=== PATIENT | male | born 1990 | race Caucasian/White ===

== ENCOUNTER 2021-08-02 15:50 | Emergency (ER) | payer OTHER, SELFPAY ==
[2021-08-02 15:56] VITALS: BP 155/105; PULSE 117; RESP 18; TEMP 36.7; O2SAT 97; BMI 33.1
--- NOTE | 2021-08-02 15:57 | ED.C_ITS ---
HPI - Psych General: Chief Complaint: Psychiatric Symptoms Stated Complaint: psych eval Time Seen by Provider: 08/02/21 15:57 History of Present Illness: Mr. Layne is a 31-year-old gentleman with significant past medical history presents to the emergency department due to suicidal ideation and depression. He reports multiple year history of depression with challenges finding medication regimens that helped. At baseline he describes just getting by and maintaining however lately he has had increased stressors at work and in his social life. He reports 1 week ago having suicidal thoughts that were near continuous and pervasive though perhaps better over the past day or so He did not kill himself because he was worried about his daughter. He reports 4 prior episodes this bad in the past. Overall course of symptoms has been worsening. Intensity is moderate to severe. Associated symptoms including weight loss, difficulty concentrating, and difficulty with sleep despite Ambien. No other specific changes in health, exacerbating, or alleviating factors identified. Duration: getting worse History of same: Yes Context: significant life stressor Associated psychiatric symptoms: depression and suicidal ideation Review of Systems General: Reports: 10 or more systems reviewed and unremarkable except in HPI and below PFSH ED PFSH: Medical History Depression Surgical History No significant past surgical history Physical Exam Const: COMMON NORMALS: alert GENERAL APPEARANCE: cooperative and well developed HENMT: COMMON NORMALS: normocephalic and atraumatic HEAD & SCALP: normocephalic and atraumatic Eye: COMMON NORMALS: conjunctivae normal CONJUNCTIVA: Yes conjunctivae normal SCLERA: sclerae normal Neck/C-Spine: COMMON NORMALS: supple GENERAL: Yes trachea midline Resp: COMMON NORMALS: normal respiratory effort EFFORT & INSPECTION: Yes able to speak in complete sentences Cardio: COMMON NORMALS: regular rate and regular rhythm RATE: regular rate RHYTHM: regular rhythm GI: COMMON NORMALS: Soft to palpation PALPATION: Yes Soft to palpation and No Tenderness to palpation present (GI) PERCUSSION: normal to percussion Extremity: GENERAL: Yes normal exam except as noted and No edema Neuro: COMMON NORMALS: moves all extremities SENSORIUM/ORIENTATION: Yes alert and No Orientation impaired Psych: COMMON NORMALS: mental status grossly normal and Normal thought process present THOUGHT PROCESS: Normal thought process present Course ED course: - Patient was seen and evaluated by me at bedside -Vital signs obtained - Initial evaluation notable for exam as above - Labs personally interpreted by me - Labs notable for no significant abnormality requiring invention - Upon serial reexamination after treatment the patient was similar. Initially the patient was agreeable to getting to the hospital however he said with the change his mind. Patient provided clinical history include direct questioning regarding suicidality/homicidality I do not believe that the patient qualifies for 96-hour hold. - Psychiatry service consulted and performed teleconsult, patient can safely be discharged - Based on patient history, evaluation, and testing as interpreted the most likely cause of the patient's condition is depression - The results of ED evaluation were given to the patient followup plan and return precautions. The patient verbalized understanding and felt safe for discharge. - Patient discharged in satisfactory condition. Note: Click bubbles or prepopulated campbell in note writing are used for assistance with data collection and billing and are inherently more limited than narrative and other text portions of this note. Please use narrative for additional clinical history and defer to narrative/free test for any case of contradictory information. If information appears in only free text or click bubble it should be considered present or absent as reported. Please contact note journalists and other writers for clarifications of clinical information or contradictory information. MDM is a brief summary, contradictory or erroneous seeming information should be clarified and full note should be reviewed. Vital Signs: Vital signs: Vital Signs Temperature 98.0 F 08/02/21 15:56 Pulse Rate 74 08/02/21 18:43 Respiratory Rate 17 08/02/21 23:19 Blood Pressure 133/80 08/02/21 18:43 Pulse Oximetry 99 08/02/21 18:43 MDM - Psych Medical Decision Making 31-year-old male presenting with worsening depression. Patient denies SI/HI and initially agreeable to admission however subsequently expresses her to leave. Psychiatry service consulted. Patient to be discharged with strict return precautions. Medical Records I reviewed the patient's medical records. Lab Data I reviewed the patient's lab results. : 08/02/21 17:21 08/02/21 17:21 Laboratory Results WBC 7.5 10^3/uL (4.0-10.0) 08/02/21 17:21 RBC 4.51 10^6/uL (4.1-5.3) 08/02/21 17:21 Hgb 10.5 g/dL (11.7-16.6) L 08/02/21 17:21 Hct 32.5 % (42.0-52.0) L 08/02/21 17:21 MCV 72.1 fl (80-94) L 08/02/21 17:21 MCH 23.3 pg (28.0-34.0) L 08/02/21 17:21 MCHC 32.3 g/dL (30.0-36.0) 08/02/21 17:21 RDW 17.2 % (12.1-15.1) H 08/02/21 17:21 Plt Count 378 10^3/cmm (130-400) 08/02/21 17:21 MPV 10.2 fL (7.4-10.4) 08/02/21 17:21 Neut % (Auto) 58.3 % 08/02/21 17:21 Lymph % (Auto) 31.6 % 08/02/21 17:21 [place] % (Auto) 8.2 % 08/02/21 17:21 Eos % (Auto) 0.7 % 08/02/21 17:21 Baso % (Auto) 0.9 % 08/02/21 17:21 Neut # (Auto) 4.36 10^3/uL (1.8-7.7) 08/02/21 17:21 Lymph # (Auto) 2.4 10^3/uL (0.8-4.8) 08/02/21 17:21 [place] # (Auto) 0.6 10^3/uL (0.2-0.9) 08/02/21 17:21 Eos # (Auto) 0.1 10^3/uL (0.0-0.8) 08/02/21 17:21 Baso # (Auto) 0.1 10^3/uL (0.0-0.1) 08/02/21 17:21 Nucleated RBC % (auto) 0 % 08/02/21 17:21 Nucleated RBCs # 0.0 /100WBC 08/02/21 17:21 Sodium 139 mmol/L (136-145) 08/02/21 17:21 Potassium 3.4 mmol/L (3.5-5.1) L 08/02/21 17:21 Chloride 104 mmol/L (98-107) 08/02/21 17:21 Carbon Dioxide 20 mmol/L (22-29) L 08/02/21 17:21 Anion Gap 18.4 (5-19) 08/02/21 17:21 BUN 11 mg/dL (6-20) 08/02/21 17:21 Creatinine 1.0 mg/dL (0.7-1.2) 08/02/21 17:21 GFR Calculation 86.6 mL/min (90-130) L 08/02/21 17:21 Glucose 94 mg/dL (65-115) 08/02/21 17:21 Calculated Osmolality 287 mOsm/kg (285-295) 08/02/21 17:21 Calcium 9.0 mg/dL (8.5-10.5) 08/02/21 17:21 Total Bilirubin 0.3 mg/dL (0.15-1.2) 08/02/21 17:21 AST 14 U/L (0-40) 08/02/21 17:21 ALT 20 U/L (0-41) 08/02/21 17:21 Alkaline Phosphatase 109 IU/L (40-130) 08/02/21 17:21 Total Protein 7.0 g/dL (6.6-8.7) 08/02/21 17:21 Albumin 4.3 g/dL (3.5-5.2) 08/02/21 17:21 Globulin 2.7 g/dL (1.3-4.6) 08/02/21 17:21 TSH 0.62 uIU/mL (0.27-4.20) 08/02/21 17:21 Salicylates < 0.3 mg/dL (3-10) L 08/02/21 17:21 Urine Opiates Screen Negative ng/mL (Negative) 08/02/21 16:38 Acetaminophen < 5.0 ug/mL (10-30) L 08/02/21 17:21 Ur Barbiturates Screen Negative ng/mL (Negative) 08/02/21 16:38 Ur Phencyclidine Scrn Negative ng/mL (Negative) 08/02/21 16:38 Ur Amphetamines Screen Negative ng/mL (Negative) 08/02/21 16:38 U Benzodiazepines Scrn Negative ng/mL (Negative) 08/02/21 16:38 Urine Cocaine Screen Negative ng/mL (Negative) 08/02/21 16:38 U Marijuana (THC) Screen Positive ng/mL (Negative) H 08/02/21 16:38 Ethyl Alcohol < 10 mg/dL (0-10) 08/02/21 17:21 Discharge Plan Discharge Patient Disposition: Home Clinical Impression: Depression Condition: Stable Prescriptions: No Action lamotrigine 150 mg tablet 150 mg PO BID 0RF lisinopril 20 mg tablet 20 mg PO DAILY 0RF venlafaxine 150 mg capsule,extended release 24hr 150 mg PO DAILY 0RF nifedipine 60 mg tablet extended release 24 hr 60 mg PO DAILY 0RF omeprazole 20 mg Capsule,Delayed Release(Dr/Ec) 20 mg PO BID 0RF zolpidem 10 mg tablet 10 mg PO BEDTIME 0RF topiramate 50 mg tablet 50 mg PO DAILY 0RF lithium carbonate 300 mg Capsule 300 mg PO TID 30 Days Qty: 90 0RF Discharge Orders: Discharge ED (Routine); Ordered 08/02/21 Ordered By: Holden Bruner Discharge Diet: Usual diet Discharge Activity: Resume usual activity Patient Instructions: Depression (ED) Activity Restrictions/Additional Instructions: Thank you for visiting the emergency department. You were seen and evaluated for mental health exam and worsening depression. It is recommend that you be admitted which you are declining at this time. Please follow-up with your primary care provider and mental health care provider tomorrow. Please return to the emergency department for thoughts of harming yourself or anyone else, worsening symptoms, or anything else that you are concerned about and feel needs emergency department evaluation. Coding Level of Care Code ED Food And Beverage Assistant for Baljit Donnelly Exam Comprehensive
[2021-08-02 16:48] VITALS: BP 163/106; O2SAT 99
[2021-08-02 17:07] LABS: Amphetamines Screen Urine Negative (Negative); Barbiturates Screen Urine Negative (Negative); Benzodiazepines Screen Urine Negative (Negative); Cocaine Screen Urine Negative (Negative); Opiate Screen Urine Negative (Negative); PCP Screen Urine Negative (Negative); THC Screen Urine Positive (Negative)
[2021-08-02 17:29] LABS: Basophils # 0.1 10^3/uL (0.0-0.1); Basophils % 0.9 %; Eosinophils # 0.1 10^3/uL (0.0-0.8); Eosinophils % 0.7 %; Hematocrit 32.5 % (42.0-52.0); Hemoglobin 10.5 g/dL (11.7-16.6); Lymphocytes # 2.4 10^3/uL (0.8-4.8); Lymphocytes % 31.6 %; Mean Corpuscular HGB Conc 32.3 g/dL (30.0-36.0); Mean Corpuscular Hemoglobin 23.3 pg (28.0-34.0); Mean Corpuscular Volume 72.1 fl (80-94); Mean Platelet Volume 10.2 fL (7.4-10.4); Monocytes # 0.6 10^3/uL (0.2-0.9); Monocytes % 8.2 %; Neutrophils # 4.36 10^3/uL (1.8-7.7); Neutrophils % 58.3 %; Nucleated Red Blood Cells % 0 %; Platelet Count 378 10^3/cmm (130-400); Red Blood Count 4.51 10^6/uL (4.1-5.3); Red Cell Distribution Width 17.2 % (12.1-15.1); White Blood Count 7.5 10^3/uL (4.0-10.0)
[2021-08-02 18:02] LABS: Alanine Aminotransferase 20 U/L (0-41); Albumin Level 4.3 g/dL (3.5-5.2); Alkaline Phosphatase 109 IU/L (40-130); Anion Gap 18.4 (5-19); Aspartate Amino Transferase 14 U/L (0-40); Blood Urea Nitrogen 11 mg/dL (6-20); Carbon Dioxide 20 mmol/L (22-29); Chloride 104 mmol/L (98-107); Globulin 2.7 g/dL (1.3-4.6); Glomerular Filtration Rate 86.6 mL/min (90-130); Glucose 94 mg/dL (65-115); Osmolality Calculated 287 mOsm/kg (285-295); Potassium 3.4 mmol/L (3.5-5.1); Sodium 139 mmol/L (136-145); Thyroid Stimulating Hormone 0.62 uIU/mL (0.27-4.20); Total Bilirubin 0.3 mg/dL (0.15-1.2)
[2021-08-02 18:03] LABS: Acetaminophen < 5.0 ug/mL (10-30); Alcohol Level < 10 mg/dL (0-10); Salicylate < 0.3 mg/dL (3-10)
[2021-08-02 18:43] VITALS: BP 133/80; PULSE 74; RESP 18; O2SAT 99
[2021-08-02 23:19] VITALS: RESP 17
== END 2021-08-02 23:23 | disposition home or self-care (01) ==
LOC: ER 18:29 → NP 18:36
PROVIDERS: Emergency Provider Emergency Medicine
DX: F32.A Depression, unspecified (principal)
CPT/HCPCS: 80053; 80306; 80307; 84443; 85025; 99285

== ENCOUNTER 2021-08-08 10:34 | Inpatient (IN) | payer OTHER, SELFPAY ==
[2021-08-08 12:00] VITALS: BP 163/105; PULSE 110; RESP 15; TEMP 37.2; BMI 32.5
--- NOTE | 2021-08-08 12:54 | ED.C_ITS ---
HPI - Psych General: Chief Complaint: Psychiatric Symptoms Stated Complaint: Depression Time Seen by Provider: 08/08/21 10:38 Source: patient Mode of arrival: ambulatory Limitations: no limitations History of Present Illness: Patient is a 31-year-old male who presents to ED today with a main complaint of depression. Patient states he was seen in our facility several days ago for the same complaint. He states he thought he could hold off at home but is reporting symptoms continue to worsen and now he is having suicidal thoughts. No specific plan. He does not report any previous attempts stating that the closest I ever got was a knife to skin . Patient is not homicidal. He does report auditory hallucinations describing them as an inner dialogue. Associated symptoms: Reports auditory hallucinations, depression and suicidal ideation; Deny visual hallucinations or homicidal ideation Review of Systems Const: Denies: fever(s) or chills Card: Denies: chest pain, palpitations, lightheadedness or syncope Resp: Denies: dyspnea GI: Denies: abdominal pain, nausea, vomiting or diarrhea Skin/Breast: Denies: rash Neuro: Denies: headache(s) Psych: Reports: anxiety, depression, hopelessness, loss of interest, auditory hallucinations and suicidal ideation; Denies: visual hallucinations or homicidal ideation [facility] ED PFSH: Medical History Depression Physical Exam Const: COMMON NORMALS: no acute distress, patient oriented x3, alert and well nourished GENERAL APPEARANCE: cooperative and well kempt ORIEN TATION/CONSCIOUSNESS: Yes oriented to person, Yes oriented to place and Yes oriented to time Resp: COMMON NORMALS: normal respiratory effort and clear to auscultation bilaterally AUSCULTATION: clear to auscultation bilaterally Cardio: COMMON NORMALS: regular rate and regular rhythm RATE: regular rate RHYTHM: regular rhythm Neuro: JED COMA SCALE: document GCS findings [place] coma scale eye opening: Spontaneous Jed coma scale verbal response: Orientated [place] coma scale motor response: Obey commands Jed coma scale total score: 15 COMMON NORMALS: patient oriented x3 SENSORIUM/ORIENTATION: Yes alert, Yes oriented to person, Yes oriented to place and Yes oriented to time Psych: COMMON NORMALS: mental status grossly normal, Normal thought process present, cooperative, speech normal, activity/motor behavior normal and denies homicidal ideation APPEARANCE: Yes grossly normal and Yes well kempt ATTITUDE: Yes calm ACTIVITY/MOTOR BEHAVIOR: Yes appropriate eye contact and No psychomotor agitation SPEECH: Yes normal speech MOOD & AFFECT: Yes tearful THOUGHT PROCESS: Normal thought process present THOUGHT CONTENT: Yes Normal thought content present ATTENTION/CONCENTRATION: Yes attention grossly intact and Yes concentration grossly intact MEMORY/COGNITION: Yes memory grossly intact and Yes cognition grossly intact INSIGHT: Good insight present (Psych) JUDGEMENT: Good judgement present (Psych) Course Consultations: Consultation #1: Dr. Burton-accepts to NPU Vital Signs: Vital signs: Vital Signs Temperature 98.9 F 08/08/21 12:00 Pulse Rate 110 H 08/08/21 12:00 Respiratory Rate 15 08/08/21 12:00 Blood Pressure 163/105 08/08/21 12:00 MDM - Psych Medical Decision Making Patient will be a voluntary admit to Dr. Burton to NPU. Lab Data : 08/08/21 12:53 08/08/21 12:53 Laboratory Results WBC 5.9 10^3/uL (4.0-10.0) 08/08/21 12:53 RBC 4.82 10^6/uL (4.1-5.3) 08/08/21 12:53 Hgb 11.4 g/dL (11.7-16.6) L 08/08/21 12:53 Hct 35.9 % (42.0-52.0) L 08/08/21 12:53 MCV 74.5 fl (80-94) L 08/08/21 12:53 MCH 23.7 pg (28.0-34.0) L 08/08/21 12:53 MCHC 31.8 g/dL (30.0-36.0) 08/08/21 12:53 RDW 17.0 % (12.1-15.1) H 08/08/21 12:53 Plt Count 418 10^3/cmm (130-400) H 08/08/21 12:53 MPV 10.0 fL (7.4-10.4) 08/08/21 12:53 Neut % (Auto) 65.9 % 08/08/21 12:53 Lymph % (Auto) 22.4 % 08/08/21 12:53 [place] % (Auto) 9.9 % 08/08/21 12:53 Eos % (Auto) 0.7 % 08/08/21 12:53 Baso % (Auto) 0.9 % 08/08/21 12:53 Neut # (Auto) 3.86 10^3/uL (1.8-7.7) 08/08/21 12:53 Lymph # (Auto) 1.3 10^3/uL (0.8-4.8) 08/08/21 12:53 [place] # (Auto) 0.6 10^3/uL (0.2-0.9) 08/08/21 12:53 Eos # (Auto) 0.0 10^3/uL (0.0-0.8) 08/08/21 12:53 Baso # (Auto) 0.1 10^3/uL (0.0-0.1) 08/08/21 12:53 Nucleated RBC % (auto) 0 % 08/08/21 12:53 Nucleated RBCs # 0.0 /100WBC 08/08/21 12:53 Sodium 141 mmol/L (136-145) 08/08/21 12:53 Potassium 3.4 mmol/L (3.5-5.1) L 08/08/21 12:53 Chloride 106 mmol/L (98-107) 08/08/21 12:53 Carbon Dioxide 20 mmol/L (22-29) L 08/08/21 12:53 Anion Gap 18.4 (5-19) 08/08/21 12:53 BUN 11 mg/dL (6-20) 08/08/21 12:53 Creatinine 0.9 mg/dL (0.7-1.2) 08/08/21 12:53 GFR Calculation 97.8 mL/min (90-130) 08/08/21 12:53 Glucose 109 mg/dL (65-115) 08/08/21 12:53 Calculated Osmolality 292 mOsm/kg (285-295) 08/08/21 12:53 Calcium 9.3 mg/dL (8.5-10.5) 08/08/21 12:53 Total Bilirubin 0.4 mg/dL (0.15-1.2) 08/08/21 12:53 AST 22 U/L (0-40) 08/08/21 12:53 ALT 23 U/L (0-41) 08/08/21 12:53 Alkaline Phosphatase 123 IU/L (40-130) 08/08/21 12:53 Total Protein 8.0 g/dL (6.6-8.7) 08/08/21 12:53 Albumin 4.7 g/dL (3.5-5.2) 08/08/21 12:53 Globulin 3.3 g/dL (1.3-4.6) 08/08/21 12:53 Salicylates 0.5 mg/dL (3-10) L 08/08/21 12:53 Urine Opiates Screen Negative ng/mL (Negative) 08/08/21 12:32 Acetaminophen < 5.0 ug/mL (10-30) L 08/08/21 12:53 Ur Barbiturates Screen Negative ng/mL (Negative) 08/08/21 12:32 Ur Phencyclidine Scrn Negative ng/mL (Negative) 08/08/21 12:32 Ur Amphetamines Screen Negative ng/mL (Negative) 08/08/21 12:32 U Benzodiazepines Scrn Negative ng/mL (Negative) 08/08/21 12:32 Urine Cocaine Screen Negative ng/mL (Negative) 08/08/21 12:32 U Marijuana (THC) Screen Positive ng/mL (Negative) H 08/08/21 12:32 Ethyl Alcohol < 10 mg/dL (0-10) 08/08/21 12:53 Discharge Plan Discharge Patient Disposition: Admitted As Inpatient Clinical Impression: Depression, Suicidal ideation Condition: Stable Coding Level of Care Code ED Workers Compensation Specialist for Baljit Fwd Exam Detailed
[2021-08-08 13:05] LABS: Basophils # 0.1 10^3/uL (0.0-0.1); Basophils % 0.9 %; Eosinophils % 0.7 %; Hematocrit 35.9 % (42.0-52.0); Hemoglobin 11.4 g/dL (11.7-16.6); Lymphocytes # 1.3 10^3/uL (0.8-4.8); Lymphocytes % 22.4 %; Mean Corpuscular HGB Conc 31.8 g/dL (30.0-36.0); Mean Corpuscular Hemoglobin 23.7 pg (28.0-34.0); Mean Corpuscular Volume 74.5 fl (80-94); Monocytes # 0.6 10^3/uL (0.2-0.9); Monocytes % 9.9 %; Neutrophils # 3.86 10^3/uL (1.8-7.7); Neutrophils % 65.9 %; Nucleated Red Blood Cells % 0 %; Platelet Count 418 10^3/cmm (130-400); Red Blood Count 4.82 10^6/uL (4.1-5.3); White Blood Count 5.9 10^3/uL (4.0-10.0)
[2021-08-08 13:47] LABS: Alanine Aminotransferase 23 U/L (0-41); Albumin Level 4.7 g/dL (3.5-5.2); Alkaline Phosphatase 123 IU/L (40-130); Anion Gap 18.4 (5-19); Aspartate Amino Transferase 22 U/L (0-40); Blood Urea Nitrogen 11 mg/dL (6-20); Calcium 9.3 mg/dL (8.5-10.5); Carbon Dioxide 20 mmol/L (22-29); Chloride 106 mmol/L (98-107); Globulin 3.3 g/dL (1.3-4.6); Glomerular Filtration Rate 97.8 mL/min (90-130); Glucose 109 mg/dL (65-115); Osmolality Calculated 292 mOsm/kg (285-295); Potassium 3.4 mmol/L (3.5-5.1); Salicylate 0.5 mg/dL (3-10); Sodium 141 mmol/L (136-145); Total Bilirubin 0.4 mg/dL (0.15-1.2)
[2021-08-08 13:50] LABS: Acetaminophen < 5.0 ug/mL (10-30); Alcohol Level < 10 mg/dL (0-10)
[2021-08-08 13:51] LABS: Amphetamines Screen Urine Negative (Negative); Barbiturates Screen Urine Negative (Negative); Benzodiazepines Screen Urine Negative (Negative); Cocaine Screen Urine Negative (Negative); Opiate Screen Urine Negative (Negative); PCP Screen Urine Negative (Negative); THC Screen Urine Positive (Negative)
[2021-08-08 15:05] VITALS: BP 144/91; PULSE 111; RESP 14; O2SAT 97
[2021-08-08 18:29] VITALS: BP 130/88; PULSE 89; RESP 17; TEMP 36.7; O2SAT 98
[2021-08-08 20:12] VITALS: BP 129/86; PULSE 87; RESP 17; TEMP 36.9; O2SAT 99
[2021-08-08] MEDS: diphenhydrAMINE 50 mg Capsule PO (21:27)
[2021-08-08 22:46] VITALS: PULSE 86; RESP 16; O2SAT 94
[2021-08-09 06:00] VITALS: BP 125/76; PULSE 76; RESP 16; TEMP 36.6; O2SAT 96
--- NOTE | 2021-08-09 08:54 | P.NPUHP_ITS ---
Providers/Chief Complaint Admitting Physician: Goldy Burton MD Chief Complaint: Depression HPI NPU History of Present Illness Vel Layne is a 31 year old male admitted to the neuropsychiatry unit for the following report. Patient is a 31-year-old male who presents to ED today with a main complaint of depression.? Patient states he was seen in our facility several days ago for the same complaint.? He states he thought he could hold off at home but is reporting symptoms continue to worsen and now he is having suicidal thoughts.? No specific plan.? He does not report any previous attempts stating that the closest I ever got was a knife to skin .? Patient is not homicidal.? He does report auditory hallucinations describing them as an inner dialogue.? From August 05: Mr. Layne is a 31-year-old gentleman with significant past medical history presents to the emergency department due to suicidal ideation and depression.? He reports multiple year history of depression with challenges finding medication regimens that helped.? At baseline he describes just getting by and maintaining however lately he has had increased stressors at work and in his social life.? He reports 1 week ago having suicidal thoughts that were near continuous and pervasive though perhaps better over the past day or so? He did not kill himself because he was worried about his daughter.? He reports 4 prior episodes this bad in the past.? Overall course of symptoms has been worsening.? Intensity is severe.? Associated symptoms including weight loss, difficulty concentrating, and difficulty with sleep despite Ambien.? No other specific changes in health, exacerbating, or alleviating factors identified. He said that he was seeing a psychiatrist who retired in 2019. He had a gene site study done in 2019 and believes that his current medication was consistent with that. He has only seen a psychiatrist over phone or video since then and the psychiatrist has not been willing to change his medication despite them not seeming to work. He says that Effexor might have helped him survive at one point. He does not think it really helped. He said Lamictal 150 mg twice a day has been more helpful. He says they consider lithium at one point but did not because of some issue that he does not remember. He could have been because he was working so much and would have difficulty getting blood tests. He has had a lot of stress at work. They have not promoted to him or giving him pay raises as he feels like they should have. He has a 3 page document to that effect. He works at a hospital and also complains that they did not adequately treat his and she lost a child shortly before she was due to give . He feels that anxiety and depression are quite prominent. He has been diagnosed with PTSD by his therapist and they have been trying to work through those issues from his brother's and to past relationships. He also has been diagnosed with OCD. He initially said the primary symptom is him picking at his gonzalez and plucking hairs. 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 He cannot set them down. He has to have certain things a certain way. He does not think that he is required routines because so much trouble that they decrease his function. He has always had difficulty with insomnia. He feels like he is always had depression. His brother when he was 14 years old after a 4-year griffith with cancer. Of course that preoccupied his parents and he did not get much attention. He says that he was quiet and retreated into video games. He he has never had significant friendships. He says that in college he buried himself in work. He said that when he revealed his issues to people they did not want to be his friend. He did very well in college. He said that he realized in his senior year that he could get C's in all his courses and still end up with a very good grade point average because he had worked so hard. He got a master's degree in computer science. He is currently on Effexor 150 mg daily, Lamictal 150 mg twice a day. He was on Ambien 10 mg but he stopped taking that a few days ago. He did have a few episodes where he did things that he did not remember. He takes Topamax 50 mg e very morning for headaches. He takes omeprazole in the morning before he eats breakfast. He takes lisinopril for years but is also been on nifedipine 60 mg every morning for what he calls stress-induced hypertension. He wants to be off of sleep medications for the next few weeks to reset. He says when he take trazodone it causes nasal congestion and he cannot breath with the CPAP. PAST PSYCHIATRIC HISTORY As above SOCIAL HISTORY As above Meds NPU Home Medications Medication Instructions Recorded Confirmed Last Taken Type lamotrigine 150 mg tablet 150 mg PO BID 08/02/21 08/08/21 08/08/21 History lisinopril 20 mg tablet 20 mg PO DAILY 08/02/21 08/08/21 08/08/21 History nifedipine 60 mg tablet,extended 60 mg PO DAILY 08/02/21 08/08/21 08/08/21 History release 24 hr omeprazole 20 mg capsule,delayed 20 mg PO BID 08/02/21 08/08/21 08/08/21 History release topiramate 50 mg tablet 50 mg PO DAILY 08/02/21 08/08/21 08/08/21 History venlafaxine 150 mg 150 mg PO DAILY 08/02/21 08/08/21 08/08/21 History capsule,extended release 24 hr zolpidem 10 mg tablet 10 mg PO BEDTIME 08/02/21 08/08/21 08/07/21 History Allergies Allergy/AdvReac Type Severity Reaction Status Date / Time trazodone Allergy Unknown Verified 08/02/21 16:01 PFS NPU PFSH: Medical History Depression Mental Status Exam MSE Comments: This is an obese 31-year-old male who appears approximately his stated age and is in no acute distress. He is dressed in hospital scrubs. He has several days' growth of gonzalez and there are areas where it appears that he has pulled out the hairs from his gonzalez. He is somewhat effeminate. He is pleasant and cooperative with the evaluation and very talkative. psychomotor activity is normal. Speech is at a regular rate and rhythm, normal volume, good articulation, not pressured. Alert, oriented X3 Attention and concentration appears to be normal. Memory is intact Mood is depressed. Affect is dysphoric Thought process is logical and goal-directed. Thought content: Denies auditory and visual hallucinations. No delusions or paranoia are noted. Admits to some suicidal ideation but is able to contract for safety in the hospital he denies homicidal ideation. Fund of knowledge is average. Insight and judgment appear to be fairly good. Impulse control is fairly good. Vitals/I&O/Wt Last Vital Signs Temp 97.9 F 06/09/22 06:00 Pulse 76 08/09/21 06:00 Resp 16 08/09/21 06:00 BP 125/76 08/09/21 06:00 Pulse Ox 96 08/09/21 06:00 Weight last 48 hrs Weight 99.79 kg Data NPU : 08/08/21 12:53 08/08/21 12:53 A&P Assessment and plan (1) PTSD (post-traumatic stress disorder): Status: Acute (2) Anxiety: Status: Acute Plan This is a 31-year-old male with lifelong anxiety and depression who presents with suicidal ideation Plan: 1. Continue current medication. Discontinue Ambien. Add lithium and increased to 3 times a day 2. Continue every 15 minute checks for safety. 3. Encourage individual, group and milieu therapies. 4. Encourage sober living treatment after discharge at the highest level of care to which he is willing to commit. 5. We will monitor for safety for himself in the community prior to discharge. Involuntary Hold Information 96 Hour Hold: 96 Hour Involuntary Admission: No Attestations NPU Medical Necessity Statement*: Inpatient hospitalization is medically necessary and the clinically appropriate intervention at this time. We will initiate medications and make changes as indicated. He will be in the hospital for over 2 midnights. Likely length of stay 4-6 days Coding Level of Care Code Acute Solar Installation Helper for Baljit Donnelly Diagnoses PTSD (post-traumatic stress disorder) F43.10 Anxiety F41.9
[2021-08-09] MEDS: lamoTRIgine 100 mg Tablet 150 MG PO ×2 (09:15→19:18)
[2021-08-09] MEDS: venlafaxine ER (24HR) 150 mg Capsule PO (09:15)
[2021-08-09] MEDS: pantoprazole DR 40 mg Tablet PO (09:16)
[2021-08-09] MEDS: lisinopril 20 mg Tablet PO (09:16)
[2021-08-09] MEDS: topiramate 25 mg Tablet 50 MG PO (09:16)
[2021-08-09] MEDS: NIFEdipine ER (24 hr) 30 mg Tablet 60 MG PO (09:17)
[2021-08-09] MEDS: lithium carbonate 300 mg Capsule PO ×2 (11:30→19:18)
[2021-08-09 14:00] VITALS: BP 126/76; PULSE 81; RESP 16; TEMP 36.7; O2SAT 98
[2021-08-09 20:39] VITALS: BP 119/75; PULSE 86; RESP 20; TEMP 36.6; O2SAT 100
[2021-08-09] MEDS: diphenhydrAMINE 50 mg Capsule PO (21:36)
[2021-08-09] MEDS: OLANZapine 5 mg ODT PO (22:33)
[2021-08-10 06:00] VITALS: BP 109/72; PULSE 61; RESP 20; TEMP 36.4; O2SAT 99
[2021-08-10] MEDS: lisinopril 20 mg Tablet PO (10:56)
[2021-08-10] MEDS: NIFEdipine ER (24 hr) 30 mg Tablet 60 MG PO (10:56)
[2021-08-10] MEDS: lithium carbonate 300 mg Capsule PO ×2 (10:56→18:27)
[2021-08-10] MEDS: lamoTRIgine 100 mg Tablet 150 MG PO ×2 (10:57→18:27)
[2021-08-10] MEDS: topiramate 25 mg Tablet 50 MG PO (10:57)
[2021-08-10] MEDS: venlafaxine ER (24HR) 150 mg Capsule PO (10:57)
[2021-08-10 14:00] VITALS: BP 115/76; PULSE 85; RESP 17; TEMP 36.7; O2SAT 97
--- NOTE | 2021-08-10 14:10 | W.PM.NPUPNS ---
Subjective NPU Subjective: He says that that made him 300 mg twice a day has been helpful. He feels more calm. He is really bored here. He thought he would get more therapy. His is going to bring the genes site results this afternoon when she comes for visitation. He understands that we can increase the lithium to 300 mg 3 times a day which is the general target dose tomorrow. He does not have a psychiatrist appointment until sometime in August. We will look at the Gene site study tomorrow to see if there are any appropriate changes. He also says that he expects to have surgery for both his knee and carpal tunnel syndrome in both of his wrists sometime in the next 3 months. Mental Status Exam MSE Comments: This is an obese 31-year-old male who appears approximately his stated age and is in no acute distress. He is dressed in hospital scrubs. He has several days' growth of gonzalez and there are areas where it appears that he has pulled out the hairs from his gonzalez. He is somewhat effeminate. He is pleasant and cooperative with the evaluation and very talkative. psychomotor activity is normal. Speech is at a regular rate and rhythm, normal volume, good articulation, not pressured. Alert, oriented X3 Attention and concentration appears to be normal. Memory is intact Mood is depressed. Affect is dysphoric Thought process is logical and goal-directed. Thought content: Denies auditory and visual hallucinations. No delusions or paranoia are noted. He denies suicidal ideation. He denies homicidal ideation. Fund of knowledge is average. Insight and judgment appear to be fairly good. Impulse control is fairly good. Cognition: Patient Appearance: Appropriate Level of Consciousness: Awake Patient Cognition Impaired: No Ability to Follow Directions: Good Patient Orientation (long list): Person, Place, Name, Age and Birthday Comprehension Ability: No Impairment Hallucination Type: None Delusion Description: Not Present Thought Process: Flight of Ideas and Indecisive Affect: Affect Description: Depressed and Tearful Depressive Symptoms: Increased Anxiety, Increased Fatigue, Loss of Energy, Loss of Interest in Activities, Low Self Esteem and Significant Weight Loss Behavior: Patient Behavior: Appropriate and Cooperative Speech Pattern: Appropriate and Clear Vitals/I&O/Wt Last Vital Signs Temp 97.6 F 08/10/21 06:00 Pulse 61 08/10/21 06:00 Resp 20 H 08/10/21 06:00 BP 109/72 08/10/21 06:00 Pulse Ox 99 08/10/21 06:00 Data NPU : 08/08/21 12:53 08/08/21 12:53 A&P Assessment and plan (1) PTSD (post-traumatic stress disorder): Status: Acute (2) Anxiety: Status: Acute Plan This is a 31-year-old male with lifelong anxiety and depression who presents with suicidal ideation Plan: 1. Continue current medication. Discontinue Ambien. Add lithium and increased to 3 times a day. We will look at Gene site study tomorrow. 2. Continue every 15 minute checks for safety. 3. Encourage individual, group and milieu therapies. 4. Encourage sober living treatment after discharge at the highest level of care to which he is willing to commit. 5. We will monitor for safety for himself in the community prior to discharge. Involuntary Hold Information 96 Hour Hold: 96 Hour Involuntary Admission: No Attestations NPU Medical Necessity Statement*: Inpatient hospitalization is medically necessary and the clinically appropriate intervention at this time. We will initiate medications and make changes as indicated. Coding Level of Care Code Acute Project Controls Specialist for Baljit Donnelly Diagnoses PTSD (post-traumatic stress disorder) F43.10 Anxiety F41.9
[2021-08-10] MEDS: acetaminophen 325 mg Tablet 650 MG PO (14:22)
[2021-08-10 19:38] VITALS: BP 126/84; PULSE 70; RESP 18; TEMP 36.7; O2SAT 100
[2021-08-10] MEDS: diphenhydrAMINE 50 mg Capsule PO (20:14)
[2021-08-10] MEDS: OLANZapine 5 mg ODT PO (22:02)
[2021-08-11] MEDS: pantoprazole DR 40 mg Tablet PO (05:59)
[2021-08-11 06:00] VITALS: BP 122/84; PULSE 82; RESP 16; TEMP 36.6; O2SAT 100
[2021-08-11] MEDS: NIFEdipine ER (24 hr) 30 mg Tablet 60 MG PO (08:17)
[2021-08-11] MEDS: lisinopril 20 mg Tablet PO (08:17)
[2021-08-11] MEDS: topiramate 25 mg Tablet 50 MG PO (08:18)
[2021-08-11] MEDS: venlafaxine ER (24HR) 150 mg Capsule PO (08:18)
[2021-08-11] MEDS: lithium carbonate 300 mg Capsule PO (08:18)
[2021-08-11] MEDS: lamoTRIgine 100 mg Tablet 150 MG PO (08:18)
--- NOTE | 2021-08-11 08:25 | W.PM.NPUDCS ---
Diagnoses at Discharge Discharge Diagnosis (1) PTSD (post-traumatic stress disorder): Status: Acute (2) Anxiety: Status: Acute Reason for Visit Reason for Visit: Depression Brief History: History of Present Illness Vel Layne is a 31 year old male admitted to the neuropsychiatry unit for the following report. Patient is a 31-year-old male who presents to ED today with a main complaint of depression.? Patient states he was seen in our facility several days ago for the same complaint.? He states he thought he could hold off at home but is reporting symptoms continue to worsen and now he is having suicidal thoughts.? No specific plan.? He does not report any previous attempts stating that the closest I ever got was a knife to skin .? Patient is not homicidal.? He does report auditory hallucinations describing them as an inner dialogue.? From August 05:??Mr. Layne is a 31-year-old gentleman with significant past medical history presents to the emergency department due to suicidal ideation and depression.? He reports multiple year history of depression with challenges finding medication regimens that helped.? At baseline he describes just getting by and maintaining however lately he has had increased stressors at work and in his social life.? He reports 1 week ago having suicidal thoughts that were near continuous and pervasive though perhaps better over the past day or so? He did not kill himself because he was worried about his daughter.? He reports 4 prior episodes this bad in the past.? Overall course of symptoms has been worsening.? Intensity is severe.? Associated symptoms including weight loss, difficulty concentrating, and difficulty with sleep despite Ambien.? No other specific changes in health, exacerbating, or alleviating factors identified. He said that he was seeing a psychiatrist who retired in 2019.? He had a gene site study done in 2019 and believes that his current medication was consistent with that.? He has only seen a psychiatrist over phone or video since then and the psychiatrist has not been willing to change his medication despite them not seeming to work.? He says that Effexor might have helped him survive at one point.? He does not think it really helped.? He said Lamictal 150 mg twice a day has been more helpful.? He says they consider lithium at one point but did not because of some issue that he does not remember.? He could have been because he was working so much and would have difficulty getting blood tests.? He has had a lot of stress at work.? They have not promoted to him or giving him pay raises as he feels like they should have.? He has a 3 page document to that effect.? He works at a hospital and also complains that they did not adequately treat his and she lost a child shortly before she was due to give .? He feels that anxiety and depression are quite prominent.? He has been diagnosed with PTSD by his therapist and they have been trying to work through those issues from his brother's and to past relationships.? He also has been diagnosed with OCD.? He initially said the primary symptom is him picking at his gonzalez and plucking hairs.? He says he cannot supervisor opening and picking a hamburger or a sandwich without eating it completely.? He cannot set them down.? He has to have certain things a certain way.? He does not think that he is required routines because so much trouble that they decrease his function.? He has always had difficulty with insomnia.? He feels like he is always had depression.? His brother when he was 14 years old after a 4-year griffith with cancer.? Of course that preoccupied his parents and he did not get much attention.? He says that he was quiet and retreated into video games.? He he has never had significant friendships.? He says that in college he buried himself in work.? He said that when he revealed his issues to people they did not want to be his friend.? He did very well in college.? He said that he realized in his senior year that he could get C's in all his courses and still end up with a very good grade point average because he had worked so hard.? He got a master's degree in computer science.? He is currently on Effexor 150 mg daily, Lamictal 150 mg twice a day.? He was on Ambien 10 mg but he stopped taking that a few days ago.? He did have a few episodes where he did things that he did not remember.? He takes Topamax 50 mg every morning for headaches.? He takes omeprazole in the morning before he eats breakfast.? He takes lisinopril for years but is also been on nifedipine 60 mg every morning for what he calls stress-induced hypertension.? He wants to be off of sleep medications for the next few weeks to reset.? He says when he take trazodone it causes nasal congestion and he cannot breath with the CPAP. Hospital Course Hospital Course He slowly acclimated to the individual, group and milieu therapies provided. He was continued on his outpatient medications. [place] 300 mg twice a day was added and he was instructed to increase to 3 mg upon discharge. He felt that the lithium was helpful for his mood. He did not feel like he had side effects. He was instructed to get a level at his primary care physician's office and 1 week. He tolerated these doses and showed steady improvement during his stay. He was able to contract for safety outside hospital prior to discharge. During the hospitalization, patient had routine laboratory studies which were within normal limits except for few outliers. Additionally there was a general medical evaluation which was also within normal limits and revealed no new acute processes. Discharge Summary: At the time of discharge, lethality was denied. Mood and anxiety were well managed. Patient endorsed a plan to follow-up with the aftercare recommendations of the treatment team. Patient was evaluated and deemed to be absent credible lethality, and had achieved the maximum benefit from an inpatient hospitalization, so was discharged. Involuntary Hold Information 96 Hour Hold: 96 Hour Involuntary Admission: No Mental Status Exam MSE Comments: This is an obese 31-year-old male who appears approximately his stated age and is in no acute distress. He is dressed in hospital scrubs. He has several days' growth of gonzalez and there are areas where it appears that he has pulled out the hairs from his gonzalez. He is pleasant and cooperative with the evaluation. psychomotor activity is normal. Speech is at a regular rate and rhythm, normal volume, good articulation, not pressured. Alert, oriented X3 Attention and concentration appears to be normal. Memory is intact Mood is mildly depressed. Affect is mildly dysphoric Thought process is logical and goal-directed. Thought content: Denies auditory and visual hallucinations. No delusions or paranoia are noted. He denies suicidal ideation. He denies homicidal ideation. Fund of knowledge is average. Insight and judgment appear to be fairly good. Impulse control is fairly good. Cognition: Patient Appearance: Appropriate Level of Consciousness: Awake Patient Cognition Impaired: No Ability to Follow Directions: Good Patient Orientation (long list): Person, Place, Name, Age and Birthday Comprehension Ability: No Impairment Hallucination Type: None Delusion Description: Not Present Thought Process: Logical Affect: Affect Description: Appropriate and Calm Depressive Symptoms: Increased Anxiety, Increased Fatigue, Loss of Energy, Loss of Interest in Activities, Low Self Esteem and Significant Weight Loss Behavior: Patient Behavior: Appropriate and Cooperative Speech Pattern: Appropriate and Clear Discharge Data Studies Completed and Pending: Laboratory Results WBC 5.9 10^3/uL (4.0- 10.0) 08/08/21 12:53 RBC 4.82 10^6/uL (4.1 -5.3) 08/08/21 12:53 Hgb 11.4 g/dL (11.7-1 6.6) L 08/08/21 12:53 Hct 35.9 % (42.0-52.0 ) L 08/08/21 12:53 MCV 74.5 fl (80-94) L 08/08/21 12:53 MCH 23.7 pg (28.0-34. 0) L 08/08/21 12:53 MCHC 31.8 g/dL (30.0-3 6.0) 08/08/21 12:53 RDW 17.0 % (12.1-15.1 ) H 08/08/21 12:53 Plt Count 418 10^3/cmm (130 -400) H 08/08/21 12:53 MPV 10.0 fL (7.4-10.4 ) 08/08/21 12:53 Neut % (Auto) 65.9 % 08/08/21 12:53 Lymph % (Auto) 22.4 % 08/08/21 12:53 [place] % (Auto) 9.9 % 08/08/21 12:53 Eos % (Auto) 0.7 % 08/08/21 12:53 Baso % (Auto) 0.9 % 08/08/21 12:53 Neut # (Auto) 3.86 10^3/uL (1.8 -7.7) 08/08/21 12:53 Lymph # (Auto) 1.3 10^3/uL (0.8- 4.8) 08/08/21 12:53 [place] # (Auto) 0.6 10^3/uL (0.2- 0.9) 08/08/21 12:53 Eos # (Auto) 0.0 10^3/uL (0.0- 0.8) 08/08/21 12:53 Baso # (Auto) 0.1 10^3/uL (0.0- 0.1) 08/08/21 12:53 Nucleated RBC % (a uto) 0 % 08/08/21 12:53 Nucleated RBCs # 0.0 /100WBC 08/08/21 12:53 Sodium 141 mmol/L (136-1 45) 08/08/21 12:53 Potassium 3.4 mmol/L (3.5-5 .1) L 08/08/21 12:53 Chloride 106 mmol/L (98-10 7) 08/08/21 12:53 Carbon Dioxide 20 mmol/L (22-29) L 08/08/21 12:53 Anion Gap 18.4 (5-19) 08/08/21 12:53 BUN 11 mg/dL (6-20) 08/08/21 12:53 Creatinine 0.9 mg/dL (0.7-1. 2) 08/08/21 12:53 GFR Calculation 97.8 mL/min (90-1 30) 08/08/21 12:53 Glucose 109 mg/dL (65-115 ) 08/08/21 12:53 Calculated Osmolal ity 292 mOsm/kg (285- 295) 08/08/21 12:53 Calcium 9.3 mg/dL (8.5-10 .5) 08/08/21 12:53 Total Bilirubin 0.4 mg/dL (0.15-1 .2) 08/08/21 12:53 AST 22 U/L (0-40) 08/08/21 12:53 ALT 23 U/L (0-41) 08/08/21 12:53 Alkaline Phosphata se 123 IU/L (40-130) 08/08/21 12:53 Total Protein 8.0 g/dL (6.6-8.7 ) 08/08/21 12:53 Albumin 4.7 g/dL (3.5-5.2 ) 08/08/21 12:53 Globulin 3.3 g/dL (1.3-4.6 ) 08/08/21 12:53 Salicylates 0.5 mg/dL (3-10) L 08/08/21 12:53 Urine Opiates Scre en Negative ng/mL (N egative) 08/08/21 12:32 Acetaminophen < 5.0 ug/mL (10-3 0) L 08/08/21 12:53 Ur Barbiturates Sc reen Negative ng/mL (N egative) 08/08/21 12:32 Ur Phencyclidine S crn Negative ng/mL (N egative) 08/08/21 12:32 Ur Amphetamines Sc reen Negative ng/mL (N egative) 08/08/21 12:32 U Benzodiazepines Scrn Negative ng/mL (N egative) 08/08/21 12:32 Urine Cocaine Scre en Negative ng/mL (N egative) 08/08/21 12:32 U Marijuana (THC) Screen Positive ng/mL (N egative) H 08/08/21 12:32 Ethyl Alcohol < 10 mg/dL (0-10) 08/08/21 12:53 Vitals: Last Vital Signs Temp 97.8 F 08/11/21 06:00 Pulse 82 08/11/21 06:00 Resp 16 08/11/21 06:00 BP 122/84 08/11/21 06:00 Pulse Ox 100 08/11/21 06:00 Discharge Plan Discharge Patient Disposition: Home Condition: Stable Prescriptions: New lithium carbonate 300 mg Capsule 300 mg PO TID 30 Days Qty: 90 0RF Continued lamotrigine 150 mg tablet 150 mg PO BID 0RF lisinopril 20 mg tablet 20 mg PO DAILY 0RF venlafaxine 150 mg capsule,extended release 24hr 150 mg PO DAILY 0RF nifedipine 60 mg tablet extended release 24 hr 60 mg PO DAILY 0RF omeprazole 20 mg Capsule,Delayed Release(Dr/Ec) 20 mg PO BID 0RF zolpidem 10 mg tablet 10 mg PO BEDTIME 0RF topiramate 50 mg tablet 50 mg PO DAILY 0RF Discharge Orders: Discharge Order (Routine); Ordered 08/11/21 Ordered By: Goldy Burton Referrals: [facility] [Other] Discharge Diet: Regular Discharge Activity: Resume usual activity Patient Instructions: Opioid Safety Discharge Attestations NPU Time Spent in Discharge Care*: less than 30 min Specific Discharge Activities: Specific discharge activities: educating patient, discussing with field case manager/social workers/dc planners, documenting/other paperwork and evaluating patient/reviewing data Coding Level of Care Code Acute Chg FW DC note Diagnoses PTSD (post-traumatic stress disorder) F43.10 Anxiety F41.9
[2021-08-11 09:34] VITALS: BP 120/78; PULSE 88; RESP 16; TEMP 36.6; O2SAT 100
== END 2021-08-11 10:30 | disposition home or self-care (01) | DRG 881 ==
LOC: ER 16:25 → NP 16:51
PROVIDERS: Admitting Provider Psychiatry & Neurology Psychiatry; Emergency Provider Physician Assistant; Visit Provider Psychiatry & Neurology Psychiatry
DX: F32.A Depression, unspecified (principal); F43.10 Post-traumatic stress disorder, unspecified; F41.9 Anxiety disorder, unspecified
CPT/HCPCS: 80053; 80306; 80307; 85025; 97150; 97165; 99285; G0378; Q0163